=== PATIENT | female | born 1925 | race Caucasian/White ===

== ENCOUNTER 2016-09-07 20:29 | Emergency (ER) | payer OTHER ==
[~2016-09-07] VITALS: Ht 149.9 cm; Wt 54.4 kg
[~2016-09-07 20:29] MED LIST: NKM; ZARONTIN250 MG ORAL
[2016-09-07 20:36] VITALS: BP 124/55
--- NOTE | 2016-09-07 20:56 | Emergency Room Report ---
History of Present Illness General Chief Complaint: Abdominal Pain Source: Patient, EMS Present Illness HPI Patient presents with complaints of low back pain Complains of the pain has been ongoing for the past several days She reports recently about 2 weeks ago been diagnosed with a bladder infection however she states that she did not take medications and was trying over-the- counter therapy Denies any vomiting or diarrhea denies any fevers or chills The pain however has worsened and she is unable to ambulate Denies any fall or trauma rates the pain as a 5/10 localized to the lower back and right flank region Allergies: Coded Allergies: No Known Allergies (Unverified , 04/06/14) Patient History Past Medical History: see triage record Pertinent Family History: none Reviewed Nursing Documentation: PMH: Agreed, PSxH: Agreed Nursing Documentation-PMH Past Medical History: No Stated History Review of Systems All Other Systems: negative except mentioned in HPI Physical Exam Vital Signs Date Time Temp Pulse Resp B/P Pulse Ox O2 Delivery O2 Flow Rate FiO2 09/07/16 20:26 100.8 96 16 160/82 99 09/07/16 20:36 Room Air Sp02 EP Interpretation: reviewed, normal General Appearance: well appearing, no apparent distress Head: normocephalic, atraumatic Eyes: bilateral eye EOMI, bilateral eye PERRL ENT: hearing grossly normal, normal pharynx, TMs + canals normal, uvula midline Neck: full range of motion, supple, no meningismus, no bony tend Respiratory: lungs clear, normal breath sounds, no rhonchi, no respiratory distress, no retraction, no accessory muscle use Cardiovascular #1: normal peripheral pulses, regular rate, rhythm, no edema, no gallop, no JVD, no murmur Gastrointestinal: normal bowel sounds, non tender, soft, no mass, no organomegaly, non-distended, no guarding, no hernia, no pulsatile mass, no rebound Genitourinary: no CVA tenderness Musculoskeletal: normal inspection Neurologic: oriented x3, responsive, media buyer III-XII nml as tested, motor strength/ tone normal, sensory intact Psychiatric: mood/affect normal Skin: normal color, no rash, warm/dry, palpation normal Lymphatic: normal inspection, no adenopathy Medical Decision Making Diagnostic Impression: Primary Impression: UTI (urinary tract infection) Additional Impression: Sepsis ER Course Multiple differentials are considered Patient is complex requiring blood work and imaging At this time the patient's urine sample does show infectious pathology patient was provided with IV antibiotics given the presentation findings in line with sepsis and possible pyelonephritis Patient placed into admission for further care Labs Test 09/07/16 20:55 09/07/16 21:12 White Blood Count 8.9 K/UL (4.8-10.8) Red Blood Count 4.38 M/UL (4.20-5.40) Hemoglobin 13.1 G/DL (12.0-16.0) Hematocrit 39.4 % (37.0-47.0) Mean Corpuscular Volume 90 FL (80-99) Mean Corpuscular Hemoglobin 29.8 PG (27.0-31.0) Mean Corpuscular Hemoglobin Concent 33.1 G/DL (32.0-36.0) Red Cell Distribution Width 12.7 % (11.6-14.8) Platelet Count 167 K/UL (150-450) Mean Platelet Volume 11.8 FL (6.5-10.1) Neutrophils (%) (Auto) 79.8 % (45.0-75.0) Lymphocytes (%) (Auto) 12.0 % (20.0-45.0) Monocytes (%) (Auto) 6.8 % (1.0-10.0) Eosinophils (%) (Auto) 0.3 % (0.0-3.0) Basophils (%) (Auto) 1.1 % (0.0-2.0) Prothrombin Time 11.3 SEC (9.30-11.50) Prothromb Time International Ratio 1.1 (0.9-1.1) Activated Partial Thromboplast Time 29 SEC (23-33) Sodium Level 135 mEQ/L (135-145) Potassium Level 4.5 mEQ/L (3.4-4.9) Chloride Level 95 mEQ/L (98-107) Carbon Dioxide Level 24 mEQ/L (20-30) Anion Gap 16 (5-15) Blood Urea Nitrogen 14 mg/dL (7-23) Creatinine 0.7 mg/dL (0.5-0.9) Estimat Glomerular Filtration Rate mL/min (>60) Glucose Level 102 mg/dL (74-106) Calcium Level 9.0 mg/dL (8.6-10.2) Total Bilirubin 0.7 mg/dL (0.0-1.2) Aspartate Amino Transf (AST/SGOT) 17 U/L (5-40) Alanine Aminotransferase (ALT/SGPT) 11 U/L (3-33) Alkaline Phosphatase 92 U/L (35-104) Total Creatine Kinase 47 U/L (26-140) Creatine Kinase MB 2.3 ng/mL (< 3.8) Creatine Kinase MB Relative Index 4.8 Troponin I < 0.30 ng/mL (<=0.30) Total Protein 6.6 g/dL (6.6-8.7) Albumin 3.7 g/dL (3.5-5.2) Globulin 2.9 g/dL Albumin/Globulin Ratio 1.2 (1.0-2.7) Urine Color Yellow Urine Appearance Turbid Urine pH 6 (4.5-8.0) Urine Specific [place] 1.020 (1.005-1.035) Urine Protein 2+ (NEGATIVE) Urine Glucose (UA) Negative (NEGATIVE) Urine Ketones Negative (NEGATIVE) Urine Occult Blood 4+ (NEGATIVE) Urine Nitrite Positive (NEGATIVE) Urine Bilirubin Negative (NEGATIVE) Urine Urobilinogen Normal MG/DL (0.0-1.0) Urine Leukocyte Esterase 3+ (NEGATIVE) Urine RBC 0-2 /HPF (0 - 2) Urine WBC Tntc /HPF (0 - 2) Urine Squamous Epithelial Cells Many /LPF (NONE/OCC) Urine Bacteria Many /HPF (NONE) Rhythm Strip Diag. Results EP Interpretation: yes Rate: 77 Rhythm: NSR, no PVC's, no ectopy CT/MRI/US Diagnostic Results CT/MRI/US Diagnostic Results : Impression CT abdomen pelvisEvaluation of bowel limited by lack of oral contrast and underdistention. Fecalized appearance of terminal ileum, suggestive of stasis. Air-fluid level in borderline dilated ileum immediately proximal to this point, measuring up to 3 cm (image 58, series 5). Otherwise, no dilated bowel to suggest high-grade obstruction. Evaluation of the urinary bladder limited by underdistention and wall thickening /cystitis not excluded. Multiple liver hypodensities, likely cysts although some are slightly denser than simple fluid or too small to accurately characterize. Liver morphology compatible with Trung's lobe. Mild splenomegaly. Pancreatic duct is mildly dilated measuring up to 5 mm and appears to empty separately from the common bile duct, compatible with pancreatic divisum. Common bile duct is not dilated. Left renal likely cysts measuring up to 2.5 cm. Normal appendix likely but not definitively identified. No pericecal inflammation to suggest acute appendicitis. Small sliding hiatal hernia. Calcified granuloma inferior aspect of right upper lobe. Trace bilateral pleural effusions. Left basilar atelectasis/airspace disease. Mild right basilar atelectasis. Generalized osteopenia. Multilevel degenerative changes of the lumbar spine. Large Schmorl's node at inferior endplate of L5. Mild height loss of L4. Grade 1 anterolisthesis of L4 on L5. Moderate to severe stenosis at L4-L5. Last Vital Signs Date Time Temp Pulse Resp B/P Pulse Ox O2 Delivery O2 Flow Rate FiO2 09/07/16 20:36 99.3 79 20 124/55 99 Room Air Status: improved [facility] Condition: Improved CHERRI STEEL D.O. Sep 07, 2016 20:56
[2016-09-07 21:08] LABS: BASOPHILS % (AUTO) 1.1 % (0.0-2.0); EOSINOPHILS % (AUTO) 0.3 % (0.0-3.0); MEAN CORPUSCULAR HEMOGLOBIN 29.8 PG (27.0-31.0); MEAN CORPUSCULAR HGB CONC 33.1 G/DL (32.0-36.0); MEAN CORPUSCULAR VOLUME 90 FL (80-99); MEAN PLATELET VOLUME 11.8 FL (6.5-10.1); MONOCYTES % (AUTO) 6.8 % (1.0-10.0); NEUTROPHILS % (AUTO) 79.8 % (45.0-75.0); PLATELET COUNT 167 K/UL (150-450); RED BLOOD COUNT 4.38 M/UL (4.20-5.40); RED CELL DISTRIBUTION WIDTH 12.7 % (11.6-14.8); WHITE BLOOD COUNT 8.9 K/UL (4.8-10.8)
[2016-09-07 21:17] LABS: INR 1.1 (0.9-1.1); PROTHROMBIN TIME 11.3 SEC (9.30-11.50)
[2016-09-07 21:27] LABS: TROPONIN I < 0.30 ng/mL (<=0.30)
[2016-09-07 21:29] LABS: APPEARANCE,URINE TURBID; KETONES,URINE NEGATIVE (NEGATIVE); LEUKOCYTE ESTERASE ,URINE 3+ (NEGATIVE); NITRITE,URINE POSITIVE (NEGATIVE); PH,URINE 6 (4.5-8.0); PROTEIN,URINE 2+ (NEGATIVE); UROBILINOGEN,URINE NORMAL MG/DL (0.0-1.0)
[2016-09-07 21:31] LABS: ALANINE AMINOTRANSFERASE 11 U/L (3-33); ALBUMIN/GLOBULIN RATIO 1.2 (1.0-2.7); ANION GAP 16 (5-15); ASPARTATE AMINO TRANSFERASE 17 U/L (5-40); CARBON DIOXIDE 24 mEQ/L (20-30); CHLORIDE 95 mEQ/L (98-107); CREATININE 0.7 mg/dL (0.5-0.9); HEMOLYSIS 28; POTASSIUM 4.5 mEQ/L (3.4-4.9); SODIUM 135 mEQ/L (135-145); TOTAL PROTEIN 6.6 g/dL (6.6-8.7)
[2016-09-07 21:41] LABS: CKMB 2.3 ng/mL (< 3.8)
[2016-09-07 21:41] LABS: RBC,URINE 0-2 /HPF (0 - 2); WBC,URINE TNTC /HPF (0 - 2)
[2016-09-07 21:42] LABS: BACTERIA,URINE MANY /HPF; SQUAMOUS EPITHELIAL CELL,UR MANY /LPF (NONE/OCC)
[2016-09-07] MEDS ORDERED: cefTRIAXone 1 GM in NS 55 ML IVPB ONE (21:45)
[2016-09-07] MEDS ORDERED: Morphine Sulfate 2mg/ml Inj IVP ONE (22:00)
[2016-09-07] MEDS ORDERED: NKM (22:36)
[2016-09-07] MEDS ORDERED: Piperacillin/Tazobactam 3.375 GM in NS 110 ML IVPB SCH (23:00)
[2016-09-07] MEDS ORDERED: Miralax 17gm pkt ORAL PRN (23:00)
[2016-09-07 23:19] VITALS: BP 131/70
[2016-09-07] MEDS ORDERED: 1/2NS w/KCl 20mEq 1000ml 1,000 ML IV SCH (23:52)
[2016-09-08] MEDS ORDERED: Enoxaparin 30mg Inj SUBQ SCH
[2016-09-08 00:25] VITALS: BP 114/64
--- NOTE | 2016-09-08 08:58 | Diagnostic Imaging Report ---
Indication: Abdominal pain Technique: Continuous helical transaxial imaging of the abdomen and pelvis was obtained from the lung bases to the pubic symphysis during intravenous contrast administration. Coronal 2-D reformats were also obtained. Study obtained in a Siemens sensation [address] Total Dose length Product (DLP): [address] Dose Index Volume (CTDIvol): 16 mGy Comparison: None Findings: There is posterior basilar atelectasis. Trace effusions are present. The spleen is enlarged. There are multiple hypodensities within the liver likely cysts. There are cysts within the left kidney. Aorta is moderately calcified. There is a hiatal hernia present. There is extensive stool distending the colon and rectum. The uterus is probably present and atrophic. Urinary bladder is mostly nondistended. The terminal ileum is distended and fecalized indicative of stasis. The proximal bowel appears normal caliber. The appendix is not seen. There is narrowing of intervertebral discs and accompanying endplate osteophyte formation. Hypertrophied facet joints also demonstrated. Bones are osteopenic. Impression: Moderate to severe retention of feces. Distention of the terminal ileum noted with evidence of stasis could be on the basis of the fecal retention in the colon. Suggest followup examination after clearance. Multiple liver cysts and left renal cyst. Spondylosis Hiatal hernia Atherosclerotic vascular disease Basilar atelectasis and/or scarring. Splenomegaly [facility] has communicated the preliminary results to the Emergency Department. Their findings are largely concordant with this report. The CT scanner at [facility] is accredited by the [employer] and the scans are performed using protocols designed to limit radiation exposure to as low as reasonably achievable to attain images of sufficient resolution adequate for diagnostic evaluation.
[2016-09-08] MEDS ORDERED: Docusate 100mg cap ORAL SCH (09:00)
--- NOTE | 2016-10-06 15:28 | Cardiology Report ---
APPROVED REPORT EKG Measurement Heart [id number] Normal sinus rhythm Normal ECG
== END 2016-09-08 00:30 | disposition short-term general hospital (02) ==
LOC: EDBD 20:29 → EMR 21:24
DX: A41.9 Sepsis, unspecified organism (principal); N39.0 Urinary tract infection, site not specified; K44.9 Diaphragmatic hernia without obstruction or gangrene; J90 Pleural effusion, not elsewhere classified; J98.11 Atelectasis; M85.80 Other specified disorders of bone density and structure, unspecified site
CPT/HCPCS: 36415; 74177; 80053; 81003; 82550; 82553; 84484; 85025; 85610; 85730; 87040; 87086; 87181; 93005; 96374; 96375; 99284; J0696; J2270; J2405; J7040; Q9967